=== PATIENT | female | born 1940 | race Caucasian/White ===

== ENCOUNTER → 2017-05-02 | Outpatient (CLI) | payer OTHER, BC ==
[~2017-05-02] MED LIST: AFRIN15 ML NS; BACTRIM DS TAB1 EACH PO; BAYER CHEWABLE81 MG PO; BENADRYL25 MG PO; CARDIZEM CD240 MG PO; CLARITIN10 MG PO; ESTRACE0.5 MG PO; IBUPROFEN 200200 M1 PO; IMDUR 60 MG TAB60 M1 PO; LASIX 40 MG TAB40 M2 PO; MAXZIDE-25 MG1 EACH PO; STOOL SOFTENER100 MG PO; TRAMADOL 50 MG50 MG PO
--- NOTE | ~2017-05-02 | 2DMMODE ---
[facility] [address] [place] [address] 2 D/M-MODE ECHOCARDIOGRAM Name: MIRANDA OGDEN Room #: REG [facility]#: [id number] Admission: 05/02/17 Attend Phys: Osbaldo Leslie MD Discharge: Date of : 44 Date of Service: 05/02/17 1240 Report #: [id number] THIS REPORT FOR: //name// APPROVED REPORT Study performed: 05/02/2017 11:19:38 EXAM: Comprehensive 2D, Doppler, and color-flow Echocardiogram Patient Location: Out-Patient Status: routine BSA: 1.86 HR: 77 bpm BP: 130/100 mmHg Other Information Study Quality: Good Indications CAD 2D Dimensions RVDd: 35.34 mm LVEF(%): 73.85 (>50%) IVSd: 11.04 (7-11mm) LVOT Diam: 18.11 (18-24mm) LVDd: 47.26 mm PWd: 11.82 (7-11mm) Ascending Ao: 28.87 (22-36mm) LVDs: 27.04 (25-40mm) Aortic Root: 27.73 mm IVC: 2.60 mm Palacios's LVEF: 73.85 % Volumes Left Atrial Volume (Systole) Single Plane 4CH: 63.50 mL Single Plane 2CH: 50.62 mL LA ESV Index: 33.00 mL/m2 Aortic Valve AoV Peak Brian.: 1.43 m/s AO Peak Gr.: 8.23 mmHg LVOT Max P.64 mmHg LVOT Max V: 1.08 m/s RJ Vmax: 1.93 cm2 Mitral Valve E/A Ratio: 0.9 MV Decel. Time: 284.93 ms MV E Max Brian.: 0.78 m/s [facility] [place] [address] 2 D/M-MODE ECHOCARDIOGRAM Name: MIRANDA OGDEN Room #: REG [facility].#: [id number] Admission: 05/02/17 Attend Phys: Osbaldo Leslie MD Discharge: Date of : 44 Date of Service: 05/02/17 1240 Report #: [id number] MV A Brian.: 0.89 m/s MV PHT: 82.63 ms IVRT: 87.66 ms Pulmonary Valve PV Peak Brian.: 1.03 m/s PV Peak Gr.: 4.20 mmHg Pulmonary Vein P Vein S: 0.62 m/s P Vein A: 0.39 m/s P Vein D: 0.56 m/s P Vein A Dur.: 124.6 msec P Vein S/D Ratio: 1.11 Tricuspid Valve TR Peak Brian.: 3.45 m/s RAP Estimate: 10.00 mmHg TR Peak Gr.: 47.58 mmHg PA Pressure: 58.00 mmHg Left Ventricle The left ventricle is normal size. Borderline concentric left ventricular hypertrophy. The left ventricular systolic function is normal. The left ventricular ejection fraction is within the normal range. LVEF is 65-70%. Grade I - abnormal relaxation pattern. Right Ventricle The right ventricle is normal size. The right ventricular systolic function is normal. Atria The left atrium size is mildly dilated. The right atrium size is normal. Aortic Valve Aortic valve is calcified. Trace aortic regurgitation. There is no aortic valvular stenosis. Mitral Valve The mitral valve chordae are thickened and/or calcified. Trace mitral regurgitation. No evidence of mitral valve stenosis. Tricuspid Valve The tricuspid valve is normal in structure. There is moderate tricuspid regurgitation. The right atrial pressure is estimated at 10 mmHg. There is moderate pulmonary hypertension with an estimated PAP of 58 mmHg. Pulmonic Valve [address] [address] 2 D/M-MODE ECHOCARDIOGRAM Name: MIRANDA OGDEN Room #: REG [facility]#: [id number] Admission: 05/02/17 Attend Phys: Osbaldo Leslie MD Discharge: Date of : 44 Date of Service: 05/02/17 1240 Report #: [id number] The pulmonary valve is normal in structure. Trace pulmonic regurgitation. Great Vessels The aortic root is normal in size. The ascending aorta is normal in size. IVC is dilated and collapses <50% with inspiration. Pericardium There is no pericardial effusion. <Conclusion> The left ventricle is normal size. The left ventricular systolic function is normal. Grade I - abnormal relaxation pattern. The right ventricle is normal size. The left atrium size is mildly dilated. Trace aortic regurgitation. Trace mitral regurgitation. There is moderate tricuspid regurgitation. The right atrial pressure is estimated at 10 mmHg. There is moderate pulmonary hypertension with an estimated PAP of 58 mmHg. <ELECTRONICALLY SIGNED> By: Osbaldo Leslie MD 05/02/17 1240 39 1240 Osbaldo Leslie MD /INF
== END ==
LOC: CV 10:48
DX: I25.10 Atherosclerotic heart disease of native coronary artery without angina pectoris (principal)

== ENCOUNTER → 2019-01-29 | Outpatient (CLI) | payer OTHER, BC ==
--- NOTE | 2019-01-29 10:16 | EXE ---
[facility] [place] [address] STRESS ECHOCARDIOGRAM Name: MIRANDA OGDEN [facility]: [facility] [id number] ������������� Admission: 01/29/19 ������������� Attend Phys: Osbaldo Leslie MD Discharge: ��� ������������� ��� Date of : 44 Date of Service: 01/29/19 1016 �� Report #: [id number] �������� ��������������������������������������������[id number] THIS REPORT FOR: //name// APPROVED REPORT Study performed: 01/29/2019 08:54:01 Exam: Stress Echocardiogram Indication: CAD Patient Location: Echo lab Stress Nurse: Richelle Fonseca RN Status: routine Ht: 5 ft 6 in Medical History Medical History: HTN, hx afib Cardiac Risk Factors: HTN, FHX of CAD Procedure The patient underwent an Exercise Stress Test using the Evan Protocol. Blood pressure, heart rate, and EKG were monitored. An Echocardiogram was performed by sound technician supervisor in four stages in quad fashion. At peak stress, four selected images were obtained and placed side by side with resting images for comparison. Stress Test Details Stress Test: Exercise stress testing was performed using a Evan protocol. HR Resting HR: 59 bpm Max Heart Rate (APMHR): 143 bpm Max HR Achieved: 111 bpm Target HR (85% APMHR): 121 bpm % of APMHR: 77 Recovery HR: 73 bpm HR response to stress: Normal HR response to stress BP Resting BP: 190/82 mmHg Max BP: 198/85 mmHg Recovery BP: 174/82 mmHg BP response to stress: Normal blood pressure response to stress. ECG Resting ECG: Sinus Rhythm Stress ECG: Sinus Rhythm, nonspecific ST-T abnormalities [facility] [address] [place] [address] STRESS ECHOCARDIOGRAM Name: MIRANDA OGDEN Room #: REG [facility].#: [id number] ������������� Admission: 01/29/19 ������������� Attend Phys: Osbaldo Leslie MD Discharge: ��� ������������� ��� Date of : 44 Date of Service: 01/29/19 1016 �� Report #: [id number] �������� ��������������������������������������������[id number] ST Change: Non-ischemic Clinical Reason for Termination: Maximal effort Stress Symptoms: right sided neck pain, subsided in recovery Exercise duration: 3 min 59 sec Highest Stage Achieved: Stage 1: 1.7 mph at 10% grade. Exercise capacity: 4.80 METs Pre-Stress Echo The resting Echocardiogram showed normal left ventricular contractility with an estimated Ejection Fraction of about 55-60%. Normal wall motion in all segments on baseline images. Post-Stress Echo The stress Echocardiogram showed normal left ventricular contractility with an estimated Ejection Fraction of about 70%. Normal augmentation of wall motion in all segments on post stress images. Clinical No clinical or ECG evidence for ischemia. Conclusion Clinical Response: Equivocal Exercise Capacity: Below Average Stress ECG Response: Non-ischemic Stress Echo Images: Non-ischemic Non-diagnostic study due to inability of the patient to achieve 85% of maximal HR. Suggest myocardial perfusion imaging. Other Information Study Quality: Adequate <Conclusion> Non-diagnostic study due to inability of the patient to achieve 85% of maximal HR. Suggest myocardial perfusion imaging. ��������������������������������������������� <ELECTRONICALLY SIGNED> ���������������������������������������� By: Osbaldo Leslie MD ��������������������������������������������� 01/29/19 1016 1016 1016 Osbaldo Leslie MD /INF
== END ==
LOC: CV 08:30
DX: I25.10 Atherosclerotic heart disease of native coronary artery without angina pectoris (principal); I10 Essential (primary) hypertension; I48.91 Unspecified atrial fibrillation; Z88.8 Allergy status to other drugs, medicaments and biological substances; Z82.49 Family history of ischemic heart disease and other diseases of the circulatory system

== ENCOUNTER → 2019-03-09 | Outpatient (CLI) | payer OTHER, BC | LOC: NUC 10:27 | DX: I25.10 Atherosclerotic heart disease of native coronary artery without angina pectoris (principal); I48.91 Unspecified atrial fibrillation; I73.9 Peripheral vascular disease, unspecified; J44.9 Chronic obstructive pulmonary disease, unspecified; Z82.49 Family history of ischemic heart disease and other diseases of the circulatory system ==